=== PATIENT | male | born 1960 | race Caucasian/White ===

== ENCOUNTER 2020-08-22 15:14 | Emergency (ER) | payer MEDICARE, SELFPAY ==
--- NOTE | ~2020-08-22 | CT_ITS ---
EXAMINATION: CT brain wo con DATE: 08/22/2020 16:55 INDICATION: Syncope. Right-sided head injury. TECHNIQUE: Computed tomography (CT) of the head was performed without intravenous contrast. The mA wa s adjusted according to patient size. Iterative reconstruction technique was employed. The dose-lengt h product was 605.33 mGy-cm. COMPARISON: None FINDINGS: There is no intracranial hemorrhage, acute infarction, or abnormal intracranial mass lesion . The ventricles are normal in size. The mastoid air cells are normal. There is cerumen in the city maintenance manager al auditory canals. The orbits are normal. There is a right frontal scalp laceration. There is a frac ture of the right nasal bone. IMPRESSION: 1. Normal brain. 2. Age-indeterminate fracture of the right nasal bone. Reviewed, dictated and finalized at location A.
--- NOTE | ~2020-08-22 | XR_ITS ---
EXAMINATION: XR chest 1V DATE: 08/22/2020 17:01 INDICATION: Syncope and collapse. TECHNIQUE: A single frontal view of the chest was obtained. COMPARISON: None. FINDINGS: There is no pneumonia, pleural effusion, or pneumothorax. Cardiomegaly is noted. Median mimi rnotomy wires and mediastinal surgical clips are seen, likely from prior coronary artery bypass graft ing. There is a left chest pacer/defibrillator with lead in right ventricle. IMPRESSION: 1. Cardiomegaly. Reviewed, dictated and finalized at location A. IMPRESSION: 1. Cardiomegaly.
[2020-08-22 15:18] VITALS: BP 136/90; PULSE 116; RESP 20; TEMP 36.4; O2SAT 99
--- NOTE | 2020-08-22 15:22 | ECG_ITS ---
Measurements Intervals [place] Rate: 121 P: 41 DC: 153 QRS: -13 QRSD: 117 T: 141 QT: 326 QTc: 463 Interpretive Statements SINUS TACHYCARDIA INCOMPLETE LEFT BUNDLE BRANCH BLOCK LEFT VENTRICULAR HYPERTROPHY AND ST-T CHANGE BORDERLINE R WAVE PROGRESSION, ANTERIOR LEADS INFERIOR INFARCT, AGE INDETERMINATE ST-T WAVE ABNORMALITY IN HIGH LATERAL LEADS- CONSIDER ISCHEMIA BASELINE ARTIFACT- I, II, AVR ABNORMAL ECG Electronically Signed On 08-23-2020 5:51:47 CDT by Manan Fish D.O.
[2020-08-22 15:48] LABS: Basophils Absolute Auto 0.1 K/mm3 (0.0-0.1); Basophils Percent Auto 0.7 % (0.2-1.2); Eosinophils Absolute Auto 0.1 K/mm3 (0-0.3); Eosinophils Percent Auto 1.3 % (0-4.4); Hematocrit 43.2 % (42.0-52.0); Hemoglobin 14.1 g/dL (14.0-18.0); Immature Granulocyte Absolute 0.04 K/mm3 (0.00-0.031); Immature Granulocyte Percent A 0.6 % (0-0.5); Lymphocytes Absolute Auto 2.28 K/mm3 (0.9-3.2); Lymphocytes Percent Auto 33.5 % (18.3-44.2); Mean Corpuscular HGB Conc 32.6 g/dl (32-36); Mean Corpuscular Hemoglobin 23.9 pg (26-34); Mean Corpuscular Volume 73.2 fl (80-100); Mean Platelet Volume 9.6 fl (7.4-10.4); Monocytes Absolute Auto 0.7 K/mm3 (0.1-0.6); Monocytes Percent Auto 10.6 % (2.6-8.5); Neutrophils Absolute Auto 3.6 K/mm3 (1.3-6.7); Neutrophils Percent Auto 53.3 % (45.5-73.1); Platelet Count Result 263 k/mm3 (150-375); Red Cell Distribution Width 16.1 % (11.5-14.5); White Blood Count 6.8 K/mm3 (4.5-10.0)
[2020-08-22 16:02] LABS: Anion Gap 13 mmol/L (8-16); Blood Urea Nitrogen 15 mg/dL (9-20); Calcium 9.9 mg/dL (8.4-10.2); Carbon Dioxide 22 mmol/L (22-30); Chloride 106 mmol/L (98-107); Estimated CRCL calculation 65 ml/min; Estimated Glomerular Filt Rate > 60; Glucose 216 mg/dL (75-110); Potassium 3.5 mmol/L (3.4-5.0); Sodium 141 mmol/L (137-145)
--- NOTE | 2020-08-22 16:40 | PC.NURSE ---
Pt off floor to imaging via cart
--- NOTE | 2020-08-22 17:02 | PC.NURSE ---
Pt states he was going back and forth from his garage to his home, believes his nitro patch slipped off, syncopized while sitting in a chair and hit concrete, +deep lac to R eyebrow (was wearing glasses, they cracked in half), lac bleeding controlled. States he is on ASA 81mg and Plavix. Currently denies CP/SOB, non-labored respirations, states pain to the head is easing up , AOx3
[2020-08-22 17:05] VITALS: BP 156/96; PULSE 123; RESP 22; O2SAT 100
[2020-08-22] MEDS: LIDOCAINE, EPINEPHRINE, TETRACAINE VISCOUS SOLN 3 ML TOPICAL (17:13)
[2020-08-22] MEDS: SODIUM CHLORIDE 0.9% IV 500 ML 999 ML IV CONT (17:51)
[2020-08-22 17:53] LABS: Troponin I 0.054 ng/mL (0.000-0.034)
[2020-08-22 17:54] VITALS: BP 137/83; PULSE 117; RESP 17; O2SAT 100
[2020-08-22 18:31] VITALS: BP 150/87; PULSE 120; RESP 21; O2SAT 100
--- NOTE | 2020-08-22 18:32 | PC.NURSE ---
ED PA at bedside to administer SQ lido. Pt remains ST on monitor, denies CP or SOB, denies palpitations. Non-labored respirations, speaks full clear sentences, 100% RA
[2020-08-22] MEDS: LIDOCAINE HCL 2% LOCAL INJ 20 ML VIAL (18:35)
--- NOTE | 2020-08-22 20:08 | ED.GENADULT ---
HPI - General Adult General Chief complaint: Syncope Stated complaint: Fall/ Facial Laceration/Syncope Time Seen by Provider: 08/22/20 16:44 Source: patient and RN notes reviewed Mode of arrival: ambulatory Limitations: no limitations History of Present Illness HPI narrative: Patient is a 59-year-old male who presents to emergency department for evaluation of syncope that occurred earlier today patient was at home when he sustained a syncopal episode described as brief patient notes that he struck the right side of the face very is a laceration of the right brow and bruising of the cheek patient denies headache or similar occurrence in the past patient believes that his nitro patch fell off which he believes caused him to have syncope patient is followed by cardiology and primary care at [facility] patient has extensive cardiac history and is currently on Plavix on arrival patient notes that he is feeling fine denies any other recent illness or complaints patient notes that he lives at home by himself Related Data Allergies Allergy/AdvReac Type Severity Reaction Status Date / Time coffee (Coffea arabica) AdvReac Other Verified 08/22/20 17:12 Review of Systems Review of Systems: All systems reviewed & are unremarkable except as noted in HPI and below PMFSH Past Medical History Medical History (Updated 08/22/20 @ 20:14 by Britton Staton PA-C) Diabetes mellitus Hypertension Myocardial infarction Surgical History Surgical History Hx of CABG Social History Social History (Updated 08/22/20 @ 20:10 by Britton Staton PA-C) Smoking status: Former smoker Exam Narrative: Exam Narrative: GENERAL: Well-appearing, well-nourished, and in no acute distress. HEAD: Normocephalic, contusion around the right periorbital region with irregular laceration of the right brow small wound over the nasal bridge EYES: PERRLA and EOMI. ENT: Nares clear, no rhinorrhea or epistaxis. Mucous membranes moist. Oropharynx without tonsillar hypertrophy exudate or other lesions. Bilateral TMs pearly ly nonbulging NECK: Supple. No adenopathy or masses. CHEST: Clear to auscultation. No respiratory distress. No wheezes rales or rhonchi HEART: Regular rate and rhythm. No murmur heard. Normal peripheral pulses. ABDOMEN: Soft, nontender, nondistended EXTREMITIES: Normal range of motion. No edema. No cervical thoracic or lumbar tenderness SKIN: Warm, dry, no rash. NEURO: No focal deficits. Alert and oriented x3. Cranial nerves II through XII grossly intact. Normal speech PSYCH: Normal mood and affect. Course Course Emergency Course: Patient evaluated in the emergency department found to have had syncope with tachycardia and elevated troponin patient was advised to stay in hospital is refusing to do so notes he will sign out AMA and feels comfortable to go home and understands the risks in doing so patient stayed for conversations to be made with his cardiology and primary care services and agrees to follow-up patient is adamant about going home although multiple attempts were made to get him to stay patient notes he will follow up on an outpatient basis Consultations Consultation #1: Disc was case with Dr. Bower with [facility] cardiology who will help facilitate discussion with the patient's design center consultant in regards to the findings in the emergency department and the patient signing out AMA Date: 08/22/20 Time: 20:11 Vital Signs Vital signs: Vital Signs Temperature 97.6 F 08/22/20 15:18 Pulse Rate 116 H 08/22/20 15:18 Respiratory Rate 20 08/22/20 15:18 Blood Pressure 136/90 08/22/20 15:18 Pulse Oximetry 99 08/22/20 15:18 Temperature 97.6 F 08/22/20 15:18 Pulse Rate 120 H 08/22/20 18:31 Respiratory Rate 21 H 08/22/20 18:31 Blood Pressure 150/87 H 08/22/20 18:31 Pulse Oximetry 100 08/22/20 18:31 Procedures Laceration Laceration 1: D
[2020-08-22 20:10] VITALS: BP 147/83; PULSE 108; RESP 20; O2SAT 100
[2020-08-22 20:37] LABS: Troponin I 0.072 ng/mL (0.000-0.034)
[2020-08-22 21:00] VITALS: BP 136/92; PULSE 101; RESP 18; O2SAT 99
== END 2020-08-22 21:03 | disposition left against medical advice (07) ==
PROVIDERS: Emergency Medicine; Emergency Medicine Emergency Medical Services; Emergency Provider Emergency Medicine; PCP Internal Medicine
DX: R55 Syncope and collapse (principal); S01.111A Laceration without foreign body of right eyelid and periocular area, initial encounter; R79.89 Other specified abnormal findings of blood chemistry; E11.9 Type 2 diabetes mellitus without complications; I10 Essential (primary) hypertension; I25.2 Old myocardial infarction; Z79.02 Long term (current) use of antithrombotics/antiplatelets; Z95.1 Presence of aortocoronary bypass graft; Z87.891 Personal history of nicotine dependence; I25.10 Atherosclerotic heart disease of native coronary artery without angina pectoris; I51.7 Cardiomegaly; R93.0 Abnormal findings on diagnostic imaging of skull and head, not elsewhere classified; W18.39XA Other fall on same level, initial encounter; R00.0 Tachycardia, unspecified; I44.7 Left bundle-branch block, unspecified; R94.31 Abnormal electrocardiogram [ECG] [EKG]
CPT/HCPCS: 12013; 36415; 70450; 71045; 80048; 84484; 85025; 93005; 96360; 99284; J7040